=== PATIENT | male | born 1970 ===

== ENCOUNTER 2017-10-24 07:19 | Outpatient (CLI) | payer OTHER | END 2017-10-24 08:18 | disposition home or self-care (01) | LOC: LAB 07:19 | DX: D64.89 Other specified anemias (principal); N39.0 Urinary tract infection, site not specified; E11.9 Type 2 diabetes mellitus without complications; E78.2 Mixed hyperlipidemia; E03.8 Other specified hypothyroidism; K92.1 Melena; R47.82 Fluency disorder in conditions classified elsewhere; I10 Essential (primary) hypertension ==